=== PATIENT | female | born 1970 | race Caucasian/White ===

== ENCOUNTER 2018-08-31 08:34 | Emergency (ER) | payer SELFPAY ==
[~2018-08-31] VITALS: Ht 162.6 cm; Wt 70.7 kg
[2018-08-31 08:49] VITALS: BP 141/69
== END 2018-08-31 09:15 | disposition left against medical advice (07) ==
LOC: ER 08:34
DX: R42 Dizziness and giddiness (principal); Z53.21 Procedure and treatment not carried out due to patient leaving prior to being seen by health care provider